=== PATIENT | male | born 1955 | race Caucasian/White ===

== ENCOUNTER 2022-07-19 10:54 | Day surgery (SDC) | payer MEDICARE ==
[2022-07-15 14:58] VITALS: BMI 35.2
[~2022-07-19 10:54] MED LIST: LIDOCAINE 1% (10MG/ML) FOR IV START INTRADERMA PRN
[2022-07-19] MEDS: LACTATED RINGERS 1,000 ML IV SCH ×2 (11:40→12:14)
[2022-07-19 11:42] VITALS: TEMP 98
[2022-07-19] MEDS ORDERED: PROPOFOL 10 MG/ML 20 ML VIAL IV ONE (12:15)
[2022-07-19] MEDS ORDERED: MIDAZOLAM 2 MG/2 ML VIAL ONE (12:15)
[2022-07-19] MEDS ORDERED: fentaNYL (PF) 50 MCG/ML 2 ML AMP ONE (12:15)
[2022-07-19] MEDS ORDERED: LIDOCAINE 2% INJ 20 MG/ML (2 ML VIAL) ONE (12:15)
[2022-07-19 13:09] LABS: Basophils # (A) 0.2 k/uL (0-0.2); Basophils % (A) 1 %; Eosinophils # (A) 0.1 k/uL (0-0.7); Eosinophils % (A) 1 %; HCT 48.7 % (39.0-53.0); HGB 15.9 gm/dL (13.0-17.5); Hypochromasia Slight; Lymphocytes # (A) 1.9 k/uL (1.0-4.8); Lymphocytes % (A) 11 %; MCH 30.4 pg (25.0-35.0); MCHC 32.6 g/dL (31.0-37.0); MCV 93.1 fL (80.0-100.0); Mean Platelet Volume 7.9; Monocytes % (A) 6 %; Neutrophils % (A) 78 %; Platelet Count 393 k/uL (150-450); RBC 5.23 m/uL (4.30-5.90); RDW 14.1 % (11.5-15.5); Reticulocyte % 2.9 % (0.5-2.0); WBC 16.6 k/uL (3.8-10.6)
[2022-07-19 13:41] VITALS: BP 102/66; PULSE 73; RESP 16
--- NOTE | 2022-07-19 21:10 | OP ---
OPERATIVE REPORT PROCEDURE PERFORMED: Bone marrow biopsy with aspiration and core biopsy performed with local and general sedation of the right iliac crest. PREOPERATIVE DIAGNOSIS: Leukocytosis. POSTOPERATIVE DIAGNOSIS: Leukocytosis. DESCRIPTION OF PROCEDURE: Mr. Beebe was placed in the left lateral decubitus position with the right iliac crest exposed. He was then given general sedation. He was then prepped with Betadine x3 and alcohol prep x3 to the posterior-superior iliac spine. This area was marked with a nonpermanent skin marker. A 3 mm incision into the topical skin tissue was made. The bone marrow was then accessed with a 4-inch Jamshidi needle with approximately 11 mL of bone marrow aspirate obtained. The needle was then advanced to obtain core biopsy. Initial 2 times obtained core biopsy were unsuccessful. A new 4-inch Jamshidi needle was used to obtain core biopsy measuring approximately 2 mm in size. The specimen was only sent for morphology, flow cytometry, cytogenetics, molecular and next-generation sequencing and FISH. We will follow up on the results of these studies in clinic. MMODL / IJN: [id number] /
== END 2022-07-19 14:04 | disposition home or self-care (01) ==
LOC: OR 10:54
PROVIDERS: ATTEND Internal Medicine
DX: D72.829 Elevated white blood cell count, unspecified (principal)
CPT/HCPCS: 85025; 85045; 38222; J2250; J3010; J2704; J2001